=== PATIENT | male | born 1990 | race African-American/Black ===

== ENCOUNTER 2017-10-08 17:34 | Emergency (ER) | payer OTHER ==
[~2017-10-08] VITALS: Ht 185.4 cm; Wt 83.0 kg
[2017-10-08 19:03] LABS: BASOPHILS % 0.2 % (0.0-2.0); EOSINOPHILS % 2.8 % (0.0-5.0); HEMOGLOBIN. 15.5 g/dL (14.0-18.0); LYMPHOCYTES % 35.9 % (20.0-50.0); MEAN CORPUSCULAR HEMOGLOBIN 28.9 pg (28.0-32.0); MEAN CORPUSCULAR VOLUME 85.9 fL (80.0-94.0); MONOCYTES % 8.8 % (2.0-8.0); NEUTROPHILS % 52.3 % (40.0-76.0); PLATELET 324 x1000/uL (130-400); RED BLOOD CELL COUNT 5.36 mill/uL (4.7-6.1); RED CELL DISTRIBUTION WIDTH 13.9 % (11.6-14.6)
[2017-10-08 19:05] LABS: PROTHROMBIN TIME 10.8 sec (9.4-11.6)
[2017-10-08 19:12] LABS: AMMONIA 29 uMol/L (<32)
[2017-10-08 19:15] LABS: CARBON DIOXIDE 30 mEq/L (21-32); CHLORIDE 103 mEq/L (98-107); ETHANOL BLOOD < 10 mg/dL
[2017-10-08 19:19] LABS: TROPONIN I < 0.02 ng/mL (0.00-0.04)
[2017-10-08] MEDS ORDERED: SODIUM CHLORIDE 0.9% 1,000 ML IV ONE (20:35)
[2017-10-08 22:20] VITALS: BP 124/62
== END 2017-10-08 22:22 | disposition home or self-care (01) ==
LOC: ER 17:42 → CANBEDREQ 22:42
DX: I16.0 Hypertensive urgency (principal); R42 Dizziness and giddiness
CPT/HCPCS: 36415; 70450; 71045; 80053; 82140; 83880; 84484; 85025; 85610; 93005; 96360; 99285; G0482; J7030; Z7610